=== PATIENT | female | born 1985 | race Caucasian/White ===

== ENCOUNTER 2017-06-12 10:03 | Emergency (ER) | payer OTHER ==
[~2017-06-12] VITALS: Ht 160 cm; Wt 58.1 kg
[2017-06-12 10:33] LABS: HEMATOCRIT 41.2 % (36.0-46.0); MCH 29.6 PG (29.0-34.0); MCV 84.6 FL (83-99); MEAN PLAT.VOLUME 9.5 uM^3 (9.5-12.4); PLATELET COUNT 145 K/uL (156-360); RBC DIS.WIDTH-CV 11.9 % (11.8-14.6); RBC DIS.WIDTH-SD 36.6 % (39-53); RED BLOOD COUNT 4.87 M/uL (3.80-5.20)
[2017-06-12 10:45] LABS: CHLORIDE 107 mEq/L (99-109); POTASSIUM 4.1 mEq/L (3.7-5.4); SODIUM 136 mEq/L (136-147)
[2017-06-12 10:46] LABS: GLUCOSE 89 mg/dL (70-99)
[2017-06-12 10:48] LABS: ANION GAP 7 MEQ/L (2-14)
[2017-06-12 10:50] LABS: GFR ESTIMATE (CALCULATED) > 59 mL/min/
[2017-06-12 10:51] LABS: UREA NITROGEN (BUN) 12 mg/dL (9-23)
[2017-06-12 11:17] LABS: QUANTITATIVE HCG 122421.2 MIU/ML
[2017-06-12 11:18] LABS: ADD MIUA? YES; BILIRUBIN NEGATIVE; BLOOD LARGE; COLOR YELLOW ((YELLOW)); GLUCOSE (STRIP) NEGATIVE; KETONES NEGATIVE; LEUKOCYTES NEGATIVE; NITRITE NEGATIVE; PROTEIN (STRIP) NEGATIVE; SPECIFIC GRAVITY 1.013 (1.000-1.030); UROBILINOGEN 0.2 MG/DL (0.2-1.0)
[2017-06-12 11:21] LABS: BACTERIA RARE /HPF; EPITHELIAL CELLS RARE /HPF; MUCUS TRACE /LPF; RED BLOOD CELLS 0-5 /HPF (0-5); UCUL ADDED? NO; WHITE BLOOD CELLS 0-5 /HPF (0-5)
[2017-06-12 14:54] VITALS: BP 135/89
== END 2017-06-12 14:55 | disposition home or self-care (01) ==
LOC: EME 10:03
PROVIDERS: Emergency Medicine
DX: O20.0 Threatened abortion (principal); Z3A.13 13 weeks gestation of pregnancy
CPT/HCPCS: 76801; 76856; 80048; 81003; 83030; 84702; 85027; 86850; 86900; 86901; 99281; 99284; J2790

== ENCOUNTER → 2017-09-24 | Outpatient (CLI) | payer OTHER ==
[~2017-09-24] VITALS: Ht 160 cm; Wt 66.0 kg
[~2017-09-24] MED LIST: PRENATAL TABLE1 EAC3 PO; STOOL SOFTENER100 MG PO
[2017-09-24 16:00] VITALS: BP 106/68
== END | disposition home or self-care (01) ==
LOC: IVINF 15:36
DX: Z31.82 Encounter for Rh incompatibility status (principal); Z3A.28 28 weeks gestation of pregnancy; Z67.41 Type O blood, Rh negative
CPT/HCPCS: 96372; J2790

== ENCOUNTER 2017-12-19 13:45 | Outpatient (CLI) | payer OTHER ==
[2017-12-19 14:01] VITALS: BP 134/84
== END 2017-12-19 15:11 | disposition home or self-care (01) ==
LOC: LDRP-OP → 2WEST 13:46 → LDRP-OP 01-15 09:18
DX: O47.1 False labor at or after 37 completed weeks of gestation (principal); Z3A.40 40 weeks gestation of pregnancy; O26.893 Other specified pregnancy related conditions, third trimester; R20.0 Anesthesia of skin; O99.820 Streptococcus B carrier state complicating pregnancy
CPT/HCPCS: 59025; G0378

== ENCOUNTER 2017-12-20 13:49 | Inpatient (IN) | payer OTHER ==
[~2017-12-20] VITALS: Ht 160 cm; Wt 79.5 kg
[2017-12-20] VITALS (20 sets, daily range): BP systolic 113–157; BP diastolic 59–88
[2017-12-20 14:47] LABS: HEMATOCRIT 39.1 % (36.0-46.0); HEMOGLOBIN 13.1 G/DL (11.9-15.5); MCH 29.4 PG (29.0-34.0); MCHC 33.5 G/DL (30.0-36.0); MCV 87.9 FL (83-99); PLATELET COUNT 129 K/uL (156-360); RBC DIS.WIDTH-CV 13.3 % (11.8-14.6); RBC DIS.WIDTH-SD 42.2 % (39-53); RED BLOOD COUNT 4.45 M/uL (3.80-5.20); WHITE BLOOD COUNT 11.8 K/uL (4.1-10.2)
[2017-12-21] VITALS (18 sets, daily range): BP systolic 116–155; BP diastolic 63–93
[2017-12-21 15:58] LABS: ALBUMIN 2.9 G/DL (3.2-4.8); ALKALINE PHOSPHATASE 178 IU/L (3-129); ALT (GPT) 11 IU/L (3-49); AST (GOT) 22 IU/L (2-34); CHLORIDE 102 MEQ/L (99-109); GFR ESTIMATE (CALCULATED) > 59 mL/min/; GLUCOSE 98 mg/dL (70-99); POTASSIUM 3.8 MEQ/L (3.7-5.4); SODIUM 135 MEQ/L (136-147); TOTAL BILIRUBIN 0.7 MG/DL (0.0-1.0); TOTAL PROTEIN 5.1 G/DL (6.4-8.3); UREA NITROGEN (BUN) 13 mg/dL (9-23)
[2017-12-21 16:27] LABS: UR CREATININE CONCENTRATION 57.1 MG/DL
[2017-12-21] MEDS ORDERED: ENDOCET 5-3251 EACH PO (18:01)
[2017-12-21] MEDS ORDERED: IBUPROFEN800 MG PO (18:01)
[2017-12-22 07:08] LABS: ALBUMIN 1.9 G/DL (3.2-4.8); ALT (GPT) 9 IU/L (3-49); AST (GOT) 27 IU/L (2-34); CHLORIDE 106 MEQ/L (99-109); GFR ESTIMATE (CALCULATED) > 59 mL/min/; GLUCOSE 102 mg/dL (70-99); SODIUM 135 MEQ/L (136-147); UREA NITROGEN (BUN) 14 mg/dL (9-23)
[2017-12-22 07:11] LABS: ALKALINE PHOSPHATASE 99 IU/L (3-129); TOTAL BILIRUBIN 0.4 MG/DL (0.0-1.0); TOTAL PROTEIN 3.3 G/DL (6.4-8.3)
[2017-12-22 07:39] LABS: BASOPHIL (%) 0.1 % (0-1); EOSINOPHIL (%) 0.1 % (0-5); HEMATOCRIT 24.6 % (36.0-46.0); IMMATURE GRANULOCYTE (%) 0.4 % (0.0-0.7); LYMPHOCYTE (%) 11.5 % (15-42); LYMPHOCYTE COUNT 1.8 K/uL (1.0-2.8); MCH 29.9 PG (29.0-34.0); MCHC 32.9 G/DL (30.0-36.0); MCV 90.8 FL (83-99); NEUTROPHIL (%) 81.9 % (45-76); PLATELET COUNT 125 K/uL (156-360); RBC DIS.WIDTH-SD 45.6 % (39-53); WHITE BLOOD COUNT 15.9 K/uL (4.1-10.2)
[2017-12-22 07:43] LABS: HEMOGLOBIN 8.1 G/DL (11.9-15.5); RED BLOOD COUNT 2.71 M/uL (3.80-5.20)
[2017-12-22 07:45] VITALS: BP 120/68
[2017-12-22 12:00] VITALS: BP 109/67
[2017-12-22 16:07] VITALS: BP 115/70
[2017-12-23 10:52] VITALS: BP 129/70
[2017-12-23 15:28] VITALS: BP 134/69
[2017-12-23 23:00] VITALS: BP 126/73
[2017-12-24 07:50] VITALS: BP 139/85
[2017-12-24 14:10] VITALS: BP 133/77
[2017-12-25 07:14] VITALS: BP 134/81
== END 2017-12-25 11:30 | disposition home or self-care (01) | DRG 765 ==
LOC: LDRP-OP 13:49 → 2WEST 13:50 → LDRP-OP 01-13 15:28
PROVIDERS: Midwife; Nurse Practitioner; Obstetrics & Gynecology Obstetrics
DX: O62.1 Secondary uterine inertia (principal); O90.81 Anemia of the puerperium; D62 Acute posthemorrhagic anemia; O63.0 Prolonged first stage (of labor); O99.824 Streptococcus B carrier state complicating childbirth; O13.4 Gestational [pregnancy-induced] hypertension without significant proteinuria, complicating childbirth; O75.89 Other specified complications of labor and delivery; N83.8 Other noninflammatory disorders of ovary, fallopian tube and broad ligament; Z3A.40 40 weeks gestation of pregnancy; Z37.0 Single live birth
CPT/HCPCS: 59025; 80053; 82570; 83030; 84156; 85025; 85027; 86850; 86900; 86901; 88304; C1755; G0378; J0690; J1100; J2175; J2274; J2405; J2540; J2790; J2795; J3010; J7120